=== PATIENT | female | born 1945 | race Caucasian/White ===

== ENCOUNTER 2018-06-08 19:31 | Emergency (ER) | payer MEDICARE ==
[2018-06-08 20:10] LABS: #Basophils 0.1 thou/uL (0.0-0.2); #Eosinphils 0.2 thou/uL (0.0-0.7); #Lymphocytes 2.1 thou/uL (1.20-3.40); #Monocytes 1.2 thou/uL (0.11-0.59); #Neutrophils 9.4 thou/uL (1.40-6.50); %Basophils 0.6 % (0.0-1.0); %Eosinophils 1.8 % (0.0-10.0); %Monocytes 9.1 % (0.0-10.0); %Neutrophils 72.5 % (42.0-75.0); Hemoglobin 13.9 g/dL (12.0-16.0); Mean Corpuscular HGB CONC 33.4 g/dL (32.0-36.0); Mean Corpuscular Hemoglobin 30.3 pg (27.0-31.0); Mean Corpuscular Volume 90.6 fL (78.0-98.0); Mean Platelet Volume 7.5 fL (7.4-10.4); Platelet Count 284 thou/uL (130-400); Red Blood Cell (RBC) Count 4.58 mill/uL (4.20-5.40); White Blood Cell (WBC) Count 12.9 thou/uL (4.8-10.8)
[2018-06-08 20:32] LABS: ALT (SGPT) 15 U/L (8-55); AST (SGOT) 18 U/L (5-34); Albumin 4.3 g/dL (3.4-4.8); Alkaline Phosphatase 72 U/L (40-150); Anion Gap 10 mmol/L (10-20); BUN (Urea Nitrogen) 21 mg/dL (9.8-20.1); Bilirubin, Total 0.4 mg/dL (0.2-1.2); Calc. Creatinine Clearance 0 mL/min (70-130); Calcium 9.9 mg/dL (7.8-10.44); Carbon Dioxide 28 mmol/L (23-31); Chloride 105 mmol/L (98-107); Estimated GFR-MDRD 47; Globulin 2.5 g/dL (2.4-3.5); Glucose 93 mg/dL (83-110); Lipase 59 U/L (8-78); Potassium 4.1 mmol/L (3.5-5.1); Protein, Total 6.8 g/dL (6.0-8.3); Sodium 139 mmol/L (136-145)
--- NOTE | 2018-06-08 20:48 | RAD ---
Radiograph right hip 2 views: HISTORY: 73-year-old female with traumatic right hip pain due to fall FINDINGS: Hip replacement arthroplasty hardware in place with no evidence of loosening, dislocation, or acute f racture. IMPRESSION: 1. Status post right hip replacement arthroplasty. 2. No fracture identified.
--- NOTE | 2018-06-08 21:14 | CT ---
CT brain noncontrast: HISTORY: 73-year-old female status post acute head trauma from fall FINDINGS: There is no evidence of acute intra-axial or extra-axial hemorrhage. There is no midline shift or any other mass effect. There is no extra-axial fluid collection. There is no evidence of obstructive hydrocephalus. Calvarium is intact. There is diffuse brain parenchymal volume loss. IMPRESSION: 1) No acute intracranial findings. 2) involutional changes.
--- NOTE | 2018-06-08 21:17 | CT ---
CT CERVICAL SPINE NONCONTRAST: DATE: 06/08/2018 HISTORY: 73-year-old female status post acute cervical trauma from fall FINDINGS: There are no jumped or perched facets. There is no evidence of acute fracture. The vertebral body hei ghts are maintained. There is no prevertebral soft tissue swelling. There are degenerative disc changes and facet osteoarthrosis. IMPRESSION: 1) Cervical spondylosis. 2) no evidence of acute fracture or acute traumatic subluxation.
--- NOTE | 2018-06-09 11:51 | RAD ---
XR Pelvis AP STANDARD HISTORY:Patient fell. COMPARISON: None. FINDINGS: The pelvic ring appears intact without evidence of fracture. There are arthritic changes of the lower lumbar spine and left hip. A right hip prosthesis is partially visualized on this exam. It appears to be in normal position. The distal end of the femoral component is not visualized. IMPRESSION: No evidence of pelvic fracture.
--- NOTE | 2018-06-12 00:15 | EKG ---
Test Reason : Blood Pressure : / mmHG Vent. Rate : 063 BPM Atrial Rate : 063 BPM P-R Int : 140 ms QRS Dur : 080 ms QT Int : 460 ms P-R-T Axes : 034 -41 041 degrees QTc Int : 470 ms Normal sinus rhythm Left axis deviation Moderate voltage criteria for LVH, may be normal variant Nonspecific ST and T wave abnormality Prolonged QT Abnormal ECG No STEMI Confirmed by RIC Hutchinson, LESLY ([id number]), non linear editor PETAR DOUGLAS ([id number] on 06/12/2018 12:15:14 AM Referred By: Confirmed By:LESLY LARIOS M.D.
== END 2018-06-08 22:07 | disposition home or self-care (01) ==
LOC: ERS 19:31
DX: S00.83XA Contusion of other part of head, initial encounter (principal); S60.221A Contusion of right hand, initial encounter; G30.9 Alzheimer's disease, unspecified; E78.00 Pure hypercholesterolemia, unspecified; F02.80 Dementia in other diseases classified elsewhere, unspecified severity, without behavioral disturbance, psychotic disturbance, mood disturbance, and anxiety; W19.XXXA Unspecified fall, initial encounter
CPT/HCPCS: 36415; 70450; 72125; 72170; 80053; 83690; 85025; 93005

== ENCOUNTER 2018-09-26 18:25 | Emergency (ER) | payer MEDICARE ==
[2018-09-26 19:32] LABS: #Basophils 0.1 thou/uL (0.0-0.2); #Eosinphils 0.2 thou/uL (0.0-0.7); #Lymphocytes 1.4 thou/uL (1.20-3.40); #Neutrophils 12.1 thou/uL (1.40-6.50); %Basophils 0.5 % (0.0-1.0); %Eosinophils 1.3 % (0.0-10.0); %Lymphocytes 9.4 % (21.0-51.0); %Neutrophils 81.7 % (42.0-75.0); Hemoglobin 12.6 g/dL (12.0-16.0); Mean Corpuscular HGB CONC 33.5 g/dL (32.0-36.0); Mean Corpuscular Hemoglobin 30.2 pg (27.0-31.0); Mean Platelet Volume 7.6 fL (7.4-10.4); Platelet Count 381 thou/uL (130-400); RBC Distribution Width 11.6 % (11.5-14.5); Red Blood Cell (RBC) Count 4.16 mill/uL (4.20-5.40); White Blood Cell (WBC) Count 14.8 thou/uL (4.8-10.8)
--- NOTE | 2018-09-26 19:40 | RAD ---
Chest AP view INDICATION: Weakness and dehydration COMPARISON: April 16, 2017 FINDINGS: Lungs:The lungs are clear Cardiac silhouette pulmonary vasculature:The cardiomediastinal silhouette appears within normal limit s. Pleural spaces:No pleural effusion or pneumothorax is demonstrated. Upper abdomen:No abnormality seen. Osseous structures: No acute osseous abnormality. There is scattered degenerative and osteoarthritic change present. There is mild thoracic scoliosis. Additional findings:None. IMPRESSION: No acute cardiopulmonary abnormality.
[2018-09-26 19:55] LABS: ALT (SGPT) 29 U/L (8-55); AST (SGOT) 26 U/L (5-34); Albumin 3.8 g/dL (3.4-4.8); Alkaline Phosphatase 81 U/L (40-150); Anion Gap 14 mmol/L (10-20); BUN (Urea Nitrogen) 16 mg/dL (9.8-20.1); Bilirubin, Total 0.5 mg/dL (0.2-1.2); Calc. Creatinine Clearance 0 mL/min (70-130); Calcium 9.6 mg/dL (7.8-10.44); Carbon Dioxide 24 mmol/L (23-31); Estimated GFR-MDRD 66; Glucose 97 mg/dL (83-110); Potassium 3.7 mmol/L (3.5-5.1); Protein, Total 6.8 g/dL (6.0-8.3)
[2018-09-26 19:57] LABS: Chloride 104 mmol/L (98-107); Sodium 138 mmol/L (136-145)
[2018-09-26 22:05] LABS: Bilirubin Negative (Negative); Blood, Urine 1+ (Negative); Clarity Clear (Clear); Glucose, Urine (Dipstick) Normal (Negative); Leukocyte 250 Leu/uL (Negative); Nitrite Negative (Negative); Protein, Urine (Dipstick) 30 mg/dL (Neg-Trace); Squamous Epithelial None Seen HPF (0-3)
[2018-09-26 22:27] LABS: Bacteria/HPF Rare-Few HPF (None Seen)
[2018-09-26] MEDS ORDERED: cefTRIAXone\\ROCEPHIN 1 GM VIAL ONE (23:07)
== END 2018-09-26 23:40 | disposition home or self-care (01) ==
LOC: ERS 18:25
DX: N39.0 Urinary tract infection, site not specified (principal); E78.00 Pure hypercholesterolemia, unspecified; G30.9 Alzheimer's disease, unspecified; F02.80 Dementia in other diseases classified elsewhere, unspecified severity, without behavioral disturbance, psychotic disturbance, mood disturbance, and anxiety; Z79.82 Long term (current) use of aspirin; Z79.899 Other long term (current) drug therapy
CPT/HCPCS: 36415; 51701; 71045; 80053; 81003; 81015; 84484; 85025; 87077; 87086; 87186; 93005; 96365; A4353; J0696

== ENCOUNTER 2018-12-19 19:18 | Emergency (ER) | payer MEDICARE ==
--- NOTE | 2018-12-19 21:00 | RAD ---
Radiograph right hip 2 views: DATE: 12/19/2018 HISTORY: 73-year-old female with acute traumatic right hip pain due to fall. COMPARISON: 06/08/2018 FINDINGS: There is metallic right hip prosthesis with long stem that reaches proximal-mid femoral diaphysis. No evidence of hardware loosening around the stem of the hardware. Low-attenuation of bone throughout the intertrochanteric region and greater trochanter, and just superior to acetabular roof, are unchan ged. No dislocation. No acute fracture identified. No interval change. IMPRESSION: 1. Status post right hip replacement arthroplasty. 2. No dislocation or acute fracture identified.
--- NOTE | 2018-12-19 22:28 | RAD ---
Left hip 2 views HISTORY: Left hip pain. FINDINGS: Moderate joint space narrowing, osteophytosis, and subchondral sclerosis. No acute fracture or dislocation. IMPRESSION: Osteoarthritic changes. No acute osseous abnormalities are demonstrated.
--- NOTE | 2018-12-19 22:29 | RAD ---
AP pelvis one view HISTORY: Fall. Pelvic injury. FINDINGS: Right hip prosthesis partially visualized without evidence of complication. Degenerative ch anges of the left hip and lower lumbar spine. Sacrum partially obscured. No displaced fractures are evident. Pelvic rings are intact. IMPRESSION: Right hip prosthesis. Degenerative changes. No acute osseous abnormalities are demonstrated.
--- NOTE | 2018-12-19 23:16 | RAD ---
Left lower leg 2 views HISTORY: Left leg injury. FINDINGS: Tibia and fibula are intact. Degenerative changes of the knee and ankle. No acute fracture or dislocation. IMPRESSION: No acute osseous abnormalities are demonstrated.
== END 2018-12-19 23:46 | disposition home or self-care (01) ==
LOC: ERS 19:18
DX: S80.12XA Contusion of left lower leg, initial encounter (principal); S30.0XXA Contusion of lower back and pelvis, initial encounter; E78.00 Pure hypercholesterolemia, unspecified; G30.9 Alzheimer's disease, unspecified; F02.80 Dementia in other diseases classified elsewhere, unspecified severity, without behavioral disturbance, psychotic disturbance, mood disturbance, and anxiety; Z79.82 Long term (current) use of aspirin; Z79.899 Other long term (current) drug therapy; W19.XXXA Unspecified fall, initial encounter
CPT/HCPCS: 72170

== ENCOUNTER 2019-02-18 21:15 | Emergency (ER) | payer MEDICARE ==
[2019-02-18] MEDS ORDERED: Acetaminophen 500 MG TAB ONE (21:57)
--- NOTE | 2019-02-18 21:59 | RAD ---
XR Hip Lt 2-3 View INDICATION: Fall with left hip pain COMPARISON: December 19, 2018 FINDINGS: Bones: No acute osseous abnormality. Bone mineralization appears within normal limits. Hip joint: There is stable mild left hip osteoarthrosis when compared to a prior dated December 19 019. SI joints and symphysis pubis: Mild degenerative change of left SI joint. Intrapelvic contents: Visualized bowel gas pattern is within normal limits. Surrounding soft tissues: Radiographically normal. IMPRESSION: 1. No acute osseous abnormality.
--- NOTE | 2019-02-18 22:00 | RAD ---
AP view of the pelvis INDICATION: Fall COMPARISON: December 19, 2018 FINDINGS: Bones: No acute fracture or subluxation demonstrated. Diffuse osteopenia. Hips: Right total hip prosthesis is unchanged in appearance. Mild left hip osteoarthrosis is stable. SI joints and symphysis pubis: Mild SI joint osteoarthrosis is stable. Intrapelvic contents: Within normal limits. IMPRESSION: No acute osseous abnormality.
--- NOTE | 2019-02-18 22:08 | CT ---
CT Cervical Spine WO Con Indication: Fall with possible neck injury; Alzheimer's dementia COMPARISON: Prior exam dated June 08, 2018 FINDINGS: Fracture: None. Spinal alignment: Slight anterior translation of C3 on C4 is stable. Slight retrolisthesis of C5 on C 6 is stable. Slight anterior translation of C7 on T1 is stable. Craniocervical junction: Within normal limits. Vertebral body heights: Maintained. Cervical spine degenerative change: Severe spondylosis cervical spine is stable. Ankylosis of C2-C3 f acet complexes and C4-C5 facet complexes is stable. Lung apices: Clear. IMPRESSION: No acute osseous abnormality.
--- NOTE | 2019-02-18 22:09 | CT ---
CT Brain WO Con: 02/18/2019 9:41 PM CLINICAL HISTORY: Fall. IMAGING TECHNIQUE: Multiple CT images were obtained of the brain without IV contrast. COMPARISON: June 08, 2018 FINDINGS: Mild motion artifact limits evaluation of the vertex. Brain: No acute infarct or hemorrhage is evident. No midline shift. Diffuse cerebral and cerebellar atrophy is stable. Ventricles: Normal. No hydrocephalus.. Skull: Intact.. Visualized Paranasal sinuses: Clear.. Mastoid air cells:Clear. Extracranial soft tissues:There is a left parietal scalp contusion. IMPRESSION: No acute intracranial abnormality.
== END 2019-02-18 22:33 | disposition home or self-care (01) ==
LOC: ERS 21:15
DX: S51.012A Laceration without foreign body of left elbow, initial encounter (principal); S76.012A Strain of muscle, fascia and tendon of left hip, initial encounter; S00.03XA Contusion of scalp, initial encounter; S70.12XA Contusion of left thigh, initial encounter; S80.01XA Contusion of right knee, initial encounter; S60.212A Contusion of left wrist, initial encounter; S60.211A Contusion of right wrist, initial encounter; W18.30XA Fall on same level, unspecified, initial encounter
CPT/HCPCS: 70450; 72125; 72170

== ENCOUNTER 2019-02-25 10:06 | Emergency (ER) | payer MEDICARE ==
[2019-02-25 10:37] LABS: #Basophils 0.1 thou/uL (0.0-0.2); #Eosinphils 0.2 thou/uL (0.0-0.7); #Lymphocytes 1.4 thou/uL (1.20-3.40); #Monocytes 0.5 thou/uL (0.11-0.59); #Neutrophils 7.1 thou/uL (1.40-6.50); %Basophils 0.6 % (0.0-1.0); %Eosinophils 1.9 % (0.0-10.0); %Lymphocytes 14.9 % (21.0-51.0); %Monocytes 5.7 % (0.0-10.0); %Neutrophils 76.9 % (42.0-75.0); Hemoglobin 12.9 g/dL (12.0-16.0); Mean Corpuscular HGB CONC 33.2 g/dL (32.0-36.0); Mean Corpuscular Hemoglobin 29.5 pg (27.0-31.0); Mean Corpuscular Volume 88.6 fL (78.0-98.0); Mean Platelet Volume 7.7 fL (7.4-10.4); Platelet Count 267 thou/uL (130-400); RBC Distribution Width 11.9 % (11.5-14.5); Red Blood Cell (RBC) Count 4.38 mill/uL (4.20-5.40); White Blood Cell (WBC) Count 9.3 thou/uL (4.8-10.8)
[2019-02-25 10:54] LABS: ALT (SGPT) 12 U/L (8-55); AST (SGOT) 18 U/L (5-34); Alkaline Phosphatase 66 U/L (40-110); Anion Gap 13 mmol/L (10-20); BUN (Urea Nitrogen) 14 mg/dL (9.8-20.1); Bilirubin, Total 0.7 mg/dL (0.2-1.2); Calc. Creatinine Clearance 0 mL/min (70-130); Calcium 9.1 mg/dL (7.8-10.44); Carbon Dioxide 24 mmol/L (23-31); Chloride 110 mmol/L (98-107); Estimated GFR-MDRD 65; Globulin 2.2 g/dL (2.4-3.5); Glucose 100 mg/dL (83-110); Potassium 4.1 mmol/L (3.5-5.1); Protein, Total 6.2 g/dL (6.0-8.3); Sodium 143 mmol/L (136-145)
--- NOTE | 2019-02-25 10:56 | RAD ---
Left hip 2 views: 02/25/2019 COMPARISON: 02/18/2019 HISTORY: Trauma, pain FINDINGS: Mild degenerative change of the bilateral sacroiliac joints and the pubic symphysis. Favian mccain visualized right total hip arthroplasty. Superior joint space narrowing of the left hip with osteophyte formation of the greater trochanter. No displaced fracture or evidence of dislocation seen . If symptoms persist or the patient is unable to bear weight, cross-sectional imaging advised. IMPRESSION: Stable left hip degenerative change. No displaced fracture seen.
--- NOTE | 2019-02-25 10:58 | RAD ---
Frontal radiograph pelvis: 02/25/2019 COMPARISON: 02/18/2019 HISTORY: Trauma FINDINGS: No fracture or dislocation. No radiopaque foreign body or subcutaneous gas. Stable hip arth roplasty on the right. Stable degenerative change of sacroiliac joints, left hip, and pubic symphysis. IMPRESSION: No acute findings.
--- NOTE | 2019-02-25 11:34 | CT ---
Head CT without contrast 02/25/2019: COMPARISON: 02/18/2019 HISTORY: Fall TECHNIQUE: Axial CT imaging at 5 mm intervals from vertex through skull base without contrast FINDINGS: The imaged paranasal sinuses and mastoid air cells are well aerated. There is no displaced calvarial fracture. No intracranial hemorrhage, midline shift, or mass effect. There is diffuse cerebral volume loss with associated prominence of the CSF containing spaces. IMPRESSION: Stable head CT as detailed above. No intracranial hemorrhage or displaced calvarial fract ure.
--- NOTE | 2019-02-25 11:37 | CT ---
EXAM: CT cervical spine PROVIDED CLINICAL HISTORY: Fall COMPARISON: None FINDINGS: No evidence for fracture or traumatic subluxation. No prevertebral soft tissue swelling apparent. Vi sualized lung apices appear clear. Advanced multilevel cervical degenerative change. IMPRESSION: No evidence for fracture or traumatic subluxation.
[2019-02-25 12:40] LABS: Bilirubin Negative (Negative); Blood, Urine Negative (Negative); Clarity Clear (Clear); Glucose, Urine (Dipstick) Normal (Negative); Leukocyte 250 Leu/uL (Negative); Nitrite Negative (Negative); Protein, Urine (Dipstick) 10 mg/dL (Neg-Trace); Urobilinogen Normal mg/dL (Less than 2)
[2019-02-25 12:41] LABS: Bacteria/HPF 2+ HPF (None Seen); Squamous Epithelial None Seen HPF (0-3); WBC/HPF 21-50 HPF (0-3)
== END 2019-02-25 13:56 | disposition home or self-care (01) ==
LOC: ERS 10:06
DX: S70.02XA Contusion of left hip, initial encounter (principal); N39.0 Urinary tract infection, site not specified; E78.00 Pure hypercholesterolemia, unspecified; G30.9 Alzheimer's disease, unspecified; F02.80 Dementia in other diseases classified elsewhere, unspecified severity, without behavioral disturbance, psychotic disturbance, mood disturbance, and anxiety; Z79.82 Long term (current) use of aspirin; Z79.899 Other long term (current) drug therapy; W18.30XA Fall on same level, unspecified, initial encounter
CPT/HCPCS: 36415; 51701; 70450; 72125; 72170; 80053; 81003; 81015; 84484; 85025; 87077; 87086; 87186; 93005; A4353

== ENCOUNTER 2019-03-20 21:26 | Inpatient (IN) | payer MEDICARE ==
[~2019-03-20 21:26] MED LIST: Iopamidol-370 76% 500 ML 1 ML ONE
--- NOTE | 2019-03-20 22:26 | RAD ---
Chest AP view INDICATION: Nausea vomiting COMPARISON: September 16, 2018 FINDINGS: Lungs:The lungs are clear Cardiac silhouette:The cardiomediastinal silhouette appears within normal limits. Pulmonary vasculature:Normal Pleural spaces:No pleural effusion or pneumothorax is demonstrated. Upper abdomen:No abnormality seen. Osseous structures: Stable diffuse osteopenia. Stable thoracolumbar scoliosis. Stable thoracic spondy losis. Additional findings:None. IMPRESSION: No acute cardiopulmonary abnormality.
[2019-03-20 22:32] LABS: #Basophils 0.1 thou/uL (0.0-0.2); #Lymphocytes 0.4 thou/uL (1.20-3.40); #Monocytes 0.8 thou/uL (0.11-0.59); #Neutrophils 15.1 thou/uL (1.40-6.50); %Basophils 0.3 % (0.0-1.0); %Eosinophils 0.2 % (0.0-10.0); %Lymphocytes 2.3 % (21.0-51.0); %Monocytes 5.1 % (0.0-10.0); %Neutrophils 92.1 % (42.0-75.0); Mean Corpuscular HGB CONC 31.3 g/dL (32.0-36.0); Mean Corpuscular Hemoglobin 29.2 pg (27.0-31.0); Mean Corpuscular Volume 93.2 fL (78.0-98.0); Mean Platelet Volume 8.4 fL (7.4-10.4); Platelet Count 305 thou/uL (130-400); RBC Distribution Width 11.8 % (11.5-14.5); Red Blood Cell (RBC) Count 4.81 mill/uL (4.20-5.40); White Blood Cell (WBC) Count 16.4 thou/uL (4.8-10.8)
--- NOTE | 2019-03-20 22:47 | CT ---
CT OF THE ABDOMEN AND PELVIS WITH IV CONTRAST INDICATION: History of dementia with vomiting and diarrhea COMPARISON: None FINDINGS: ABDOMEN: Lung bases: Mild bibasilar atelectasis Liver: No focal lesion. Gallbladder: Normal appearing. There is slight prominence of the common bile duct without a visible stone. There is a diverticulum seen in the second portion the duodenum near the ampulla. Pancreas: Normal. Adrenal glands: Normal. Spleen: Normal. Kidneys and ureters: There is bilateral nephrolithiasis. The largest stone is seen within the superio r pole of the left kidney measuring 6.6 mm. There is a 3.5 mm stone within the mid left kidney. There is a 1 to 2 mm stone within the mid right kidney. No hydronephrosis is demonstrated. Vasculature: There are severe vascular calcifications seen involving the visualized vasculature. Lymph nodes:No lymphadenopathy. Free fluid in abdomen:No free fluid is evident. PELVIS: Small and large bowel: There is scattered colonic diverticulosis without evidence of active diverticu litis. Appendix:Normal Bladder: Normal. Rectal and perirectal soft tissues:Normal. Reproductive structures: Normal. Free fluid in pelvis: No free fluid is evident. Lymphadenopathy pelvis: No lymphadenopathy is evident. Osseous structures: There is diffuse osteopenia. There is a right total hip replacement. There is sc attered degenerative and osteoarthritic changes. Soft tissues:There are bilateral breast implants. Soft tissues are otherwise within normal limits. IMPRESSION: 1. No definite acute abnormality. 2. Bilateral nephrolithiasis 3. Slight prominence of the common bile duct without a visible intraluminal stone. There is moderatel y prominent diverticulum seen near the second stage of the duodenum and the ampulla of Vater. This may be causing some mild obstructive physiology to the common bile duct. 4. Colonic diverticulosis without evidence of active diverticulitis
[2019-03-20 22:54] LABS: ALT (SGPT) 21 U/L (8-55); AST (SGOT) 25 U/L (5-34); Albumin 4.2 g/dL (3.4-4.8); Alkaline Phosphatase 73 U/L (40-110); Anion Gap 20 mmol/L (10-20); BUN (Urea Nitrogen) 20 mg/dL (9.8-20.1); Bilirubin, Total 0.6 mg/dL (0.2-1.2); Calc. Creatinine Clearance 0 mL/min (70-130); Calcium 9.2 mg/dL (7.8-10.44); Carbon Dioxide 19 mmol/L (23-31); Chloride 109 mmol/L (98-107); Estimated GFR-MDRD 52; Globulin 2.4 g/dL (2.4-3.5); Glucose 205 mg/dL (83-110); Lipase 36 U/L (8-78); Potassium 4.6 mmol/L (3.5-5.1); Protein, Total 6.6 g/dL (6.0-8.3); Sodium 143 mmol/L (136-145)
[2019-03-20 23:16] LABS: Bilirubin Negative (Negative); Blood, Urine Negative (Negative); Clarity Clear (Clear); Glucose, Urine (Dipstick) Normal (Negative); Leukocyte 500 Leu/uL (Negative); Mucous/LPF Rare LPF (<2+); Nitrite Negative (Negative); Protein, Urine (Dipstick) 20 mg/dL (Neg-Trace); Renal Epithelial 0-3 HPF (None Seen); Squamous Epithelial 0-3 HPF (0-3); Urobilinogen Normal mg/dL (Less than 2); WBC/HPF 21-50 HPF (0-3)
[2019-03-20 23:21] LABS: Bacteria/HPF Rare-Few HPF (None Seen); RBC/HPF 0-3 HPF (0-3)
[2019-03-21] MEDS ORDERED: cefTRIAXone\\ROCEPHIN 2 GM VIAL ONE (00:02)
[2019-03-21 05:46] LABS: Lactic Acid 3.4 mmol/L (0.5-2.2)
[2019-03-21] MEDS ORDERED: Ondansetron PF 4 MG/2 ML Vial IVP PRN ×2 (05:51→18:03)
[2019-03-21] MEDS ORDERED: Ondansetron ODT 4 MG TAB SL PRN (05:51)
[2019-03-21] MEDS: Sodium Chloride 0.9% 1,000 ML IV SCH ×4 (05:56→21:00)
[2019-03-21 05:58] VITALS: BMI 20.6
--- NOTE | 2019-03-21 06:23 | PDOC.HHP ---
Hospitalist HPI - History of Present Illness encephalopathy, diarrhea History of Present Illness: This is a 73 year old female with Alzheimers who presented from the ER due to nausea, vomiting and diarrhea from her [facility]. She also was more confused and family thought that she may have a UTI since she normally presents like this when she has a UTI. The patient is unable to give a history. There are several sick contacts in the [facility]. ED Course: Vitals on admission were unremarkable. Labs showed a WBC of 16.4. Lactate was 2.9. The patient had a UA which showed 500 leukocyte esterase. Chest Xray showed no pneumonia. CT abdomen showed bilateral nephrolithiasis. THe patient received 2L normal saline, 2 gram ceftriaxone and was admitted for further workup. Repeat lactate was still trending up. Hospitalist ROS - Review of Systems ROS unobtainable: due to mental status Respiratory: denies: cough Cardiovascular: denies: chest pain Gastrointestinal: denies: abdominal pain, diarrhea - Medication Medications: Active Medications Generic Name Dose Route Start Last Admin Trade Name Freq PRN Reason Stop Dose Admin Sodium Chloride 1,000 mls @ 100 mls/hr 03/21/19 05:51 03/21/19 05:56 Normal Saline 0.9% IV 03/21/19 12:54 1,000 mls .Q10H NARESH Administration Hospitalist History - Past Medical History Cardiac: reports: HTN - Past Surgical History Other Surgical History: Hip replacement - Family History Other Family History: Unknown - Social History Smoking Status: Unknown if ever smoked Other Social History: Lives at [facility] - Exam General Appearance: NAD, awake alert General - other findings: answers some questions Eye: PERRL, anicteric sclera ENT: normocephalic atraumatic, no oropharyngeal lesions, dry oral mucosa Neck: supple, symmetric, no JVD, no thyromegaly, no carotid bruit Heart: RRR, no murmur, no gallops, no rubs Respiratory: CTAB, no wheezes, no rales, no ronchi Gastrointestinal: soft, non-tender, non-distended, normal bowel sounds Extremities: no cyanosis, no clubbing, no edema Skin: normal turgor, no lesions, no rashes Neurological: cranial nerve grossly intact, normal sensation to touch, no focal deficits, no new deficit Musculoskeletal: normal tone, normal strength, no muscle wasting Psychiatric: oriented to person Psychiatric - other findings: says she is in her house Hospitalist Results - Labs Result Diagrams: 03/20/19 22:12 03/20/19 22:12 Lab results: WBC 16.4 thou/uL (4.8-10.8) H 03/20/19 22:12 Hgb 14.0 g/dL (12.0-16.0) 03/20/19 22:12 Hct 44.8 % (36.0-47.0) 03/20/19 22:12 MCV 93.2 fL (78.0-98.0) 03/20/19 22:12 Plt Count 305 thou/uL (130-400) 03/20/19 22:12 Neutrophils % 92.1 % (42.0-75.0) H 03/20/19 22:12 Sodium 143 mmol/L (136-145) 03/20/19 22:12 Potassium 4.6 mmol/L (3.5-5.1) 03/20/19 22:12 Chloride 109 mmol/L (98-107) H 03/20/19 22:12 Carbon Dioxide 19 mmol/L (23-31) L 03/20/19 22:12 BUN 20 mg/dL (9.8-20.1) 03/20/19 22:12 Creatinine 1.05 mg/dL (0.6-1.1) 03/20/19 22:12 Glucose 205 mg/dL (83-110) H 03/20/19 22:12 Lactic Acid 3.4 mmol/L (0.5-2.2) H 03/21/19 00:57 Calcium 9.2 mg/dL (7.8-10.44) 03/20/19 22:12 Total Bilirubin 0.6 mg/dL (0.2-1.2) 03/20/19 22:12 AST 25 U/L (5-34) 03/20/19 22:12 ALT 21 U/L (8-55) 03/20/19 22:12 Alkaline Phosphatase 73 U/L (40-110) 03/20/19 22:12 Troponin I Less than 0.010 ng/mL (< 0.028) 03/20/19 22:13 Serum Total Protein 6.6 g/dL (6.0-8.3) 03/20/19 22:12 Albumin 4.2 g/dL (3.4-4.8) 03/20/19 22:12 Lipase 36 U/L (8-78) 03/20/19 22:12 Urine Ketones Negative mg/dL (Negative) 03/20/19 22:59 Urine Blood Negative (Negative) 03/20/19:59 Urine Nitrite Negative (Negative) 03/20/19:59 Ur Leukocyte Esterase 500 Caridad/uL (Negative) A 03/20/19:59 Urine RBC 0-3 HPF (0-3) 03/20/19:59 Urine WBC 21-50 HPF (0-3) A 03/20/19 22:59 Ur Squamous Epith Cells 0-3 HPF (0-3) 03/20/19:59 Urine Bacteria Rare-Few HPF (None Seen) 03/20/19:59 - EKG Interpretation EKG: motion artifact Hospitalist H&P A/P - Plan Plan: Chest X ray: no acute disease CT abdomen: bilateral kidney stones. Colonic diverticulosis. Slight prominence of common bile duct. Severe vascular calcification s This is 73 year old female who presented to the ER with nausea/vomiting/ diarrhea and altered mental status. #Dehydration and lactic acidosis possibly secondary to gastroenteritis #Leukocytosis - stool cultures and C diff sent - will order additional 500 cc bolus, s/p 2L bolus. Repeat lactate in am - CT abdomen showed no acute pathology. UA showed 500 leukocyte esterase, on IV ceftriaxone - will send urine culture #Hypertension - hold home meds #Dementia - resume home meds DVT prophylaxis: will order heparin Code status: unknown, assume full code
[2019-03-21] MEDS ORDERED: Sodium Chloride 0.9% 500 ML IV SCH (06:30)
[2019-03-21 06:44] LABS: #Lymphocytes 0.6 thou/uL (1.20-3.40); #Monocytes 0.5 thou/uL (0.11-0.59); #Neutrophils 8.9 thou/uL (1.40-6.50); %Basophils 0.2 % (0.0-1.0); %Eosinophils 0.2 % (0.0-10.0); %Lymphocytes 5.6 % (21.0-51.0); %Monocytes 5.2 % (0.0-10.0); %Neutrophils 88.9 % (42.0-75.0); Hemoglobin 11.8 g/dL (12.0-16.0); Mean Corpuscular HGB CONC 33.7 g/dL (32.0-36.0); Mean Corpuscular Hemoglobin 31.3 pg (27.0-31.0); Mean Corpuscular Volume 92.9 fL (78.0-98.0); Mean Platelet Volume 7.8 fL (7.4-10.4); Platelet Count 269 thou/uL (130-400); RBC Distribution Width 11.7 % (11.5-14.5); Red Blood Cell (RBC) Count 3.76 mill/uL (4.20-5.40)
[2019-03-21] MEDS ORDERED: cefTRIAXone Sodium 1 MG in Syringe 0 ML IVPB SCH (06:45)
[2019-03-21 06:55] LABS: Anion Gap 14 mmol/L (10-20); BUN (Urea Nitrogen) 16 mg/dL (9.8-20.1); Calc. Creatinine Clearance 64 mL/min (70-130); Calcium 7.9 mg/dL (7.8-10.44); Carbon Dioxide 20 mmol/L (23-31); Chloride 115 mmol/L (98-107); Estimated GFR-MDRD 71; Glucose 95 mg/dL (83-110); Potassium 4.5 mmol/L (3.5-5.1); Sodium 144 mmol/L (136-145)
[2019-03-21] MEDS: Calcium Carbonate + Vit D 1 TAB PO SCH ×2 (09:05→21:01)
[2019-03-21] MEDS: Aspirin 81 mg Enteric Coated Tablet PO SCH (09:05)
[2019-03-21] MEDS: Heparin 5,000 UNITS/ML VIAL SC SCH ×3 (09:06→21:08)
[2019-03-21] MEDS: Loratadine 10 MG TAB PO SCH (09:06)
[2019-03-21] MEDS: Donepezil HCl 5 MG TAB PO SCH ×2 (09:06→21:01)
[2019-03-21] MEDS: Citalopram 20 MG TAB PO SCH (09:06)
[2019-03-21 10:22] LABS: Lactic Acid 1.3 mmol/L (0.5-2.2)
[2019-03-21] MEDS ORDERED: Prevnar 13-Val Conj/PF 0.5 ML SYRINGE IM ONE (21:00)
[2019-03-21] MEDS ORDERED: FLU VACC TS2019-20(65YR UP)/PF 180 MCG/0.5 ML SYRINGE IM ONE (21:00)
--- NOTE | 2019-03-21 21:42 | PDOC.EVN ---
Event Note - Event Note Event Note: ON initial visit, she was doing better. Had not had any further diarrhea, vomiting. WBC back to normal range. Labs ok. Looks viral. Subsequently, she had recurrence of vomiting. Anti-emetics re-ordered. Will continue IVF, treat symptomatically and reassess in am.
[2019-03-22] MEDS: cefTRIAXone\\ROCEPHIN 1 GM in Sodium Chloride 0.9% 100 ML IVPB SCH ×2 (00:22→23:44)
[2019-03-22 05:23] LABS: #Eosinphils 0.1 thou/uL (0.0-0.7); #Lymphocytes 0.5 thou/uL (1.20-3.40); #Monocytes 0.4 thou/uL (0.11-0.59); #Neutrophils 3.5 thou/uL (1.40-6.50); %Basophils 0.3 % (0.0-1.0); %Eosinophils 1.8 % (0.0-10.0); %Lymphocytes 10.6 % (21.0-51.0); %Monocytes 9.6 % (0.0-10.0); %Neutrophils 77.8 % (42.0-75.0); Hemoglobin 10.9 g/dL (12.0-16.0); Mean Corpuscular HGB CONC 35.1 g/dL (32.0-36.0); Mean Corpuscular Hemoglobin 31.6 pg (27.0-31.0); Mean Corpuscular Volume 90.1 fL (78.0-98.0); Mean Platelet Volume 7.6 fL (7.4-10.4); Platelet Count 216 thou/uL (130-400); RBC Distribution Width 11.5 % (11.5-14.5); Red Blood Cell (RBC) Count 3.44 mill/uL (4.20-5.40); White Blood Cell (WBC) Count 4.5 thou/uL (4.8-10.8)
[2019-03-22 05:46] LABS: ALT (SGPT) 17 U/L (8-55); AST (SGOT) 21 U/L (5-34); Alkaline Phosphatase 51 U/L (40-110); Anion Gap 8 mmol/L (10-20); BUN (Urea Nitrogen) 8 mg/dL (9.8-20.1); Bilirubin, Total 0.2 mg/dL (0.2-1.2); Calc. Creatinine Clearance 70 mL/min (70-130); Calcium 7.6 mg/dL (7.8-10.44); Carbon Dioxide 23 mmol/L (23-31); Chloride 111 mmol/L (98-107); Estimated GFR-MDRD 79; Globulin 2.1 g/dL (2.4-3.5); Glucose 87 mg/dL (83-110); Potassium 3.3 mmol/L (3.5-5.1); Protein, Total 5.1 g/dL (6.0-8.3); Sodium 139 mmol/L (136-145)
[2019-03-22] MEDS: Heparin 5,000 UNITS/ML VIAL SC SCH ×3 (07:53→20:41)
[2019-03-22] MEDS: Loratadine 10 MG TAB PO SCH (07:53)
[2019-03-22] MEDS: Donepezil HCl 5 MG TAB PO SCH ×2 (07:53→20:40)
[2019-03-22] MEDS: Aspirin 81 mg Enteric Coated Tablet PO SCH (07:54)
[2019-03-22] MEDS: Calcium Carbonate + Vit D 1 TAB PO SCH ×2 (07:55→20:40)
[2019-03-22] MEDS: Citalopram 20 MG TAB PO SCH (07:55)
--- NOTE | 2019-03-22 11:53 | PDOC.HOSPP ---
- Subjective Encounter Date: 03/22/19 Encounter Time: 09:35 Subjective: Patient seen and examined. No new complaints. No overnight events - Objective Vital Signs & Weight: Vital Signs (12 hours) Temp Pulse Resp BP Pulse Ox 03/22/19 10:56 98.3 F 64 16 126/62 98 03/22/19 07:37 98.7 F 68 16 127/72 97 03/22/19 03:51 98.2 F 74 18 131/70 93 L Weight Weight 141 lb 3 oz I&O: 03/21/19 03/22/19 03/23/19 06:59 06:59 06:59 Intake Total 546 2880 Output Total 75 Balance 546 2805 Result Diagrams: 03/22/19 04:52 03/22/19 04:52 Radiology Reviewed by me: Yes Hospitalist ROS - Review of Systems ROS unobtainable: due to mental status - Medication Medications: Active Medications Generic Name Dose Route Start Last Admin Trade Name Freq PRN Reason Stop Dose Admin Aspirin 81 mg 03/21/19 09:00 03/22/19 07:54 Ecotrin PO 81 mg DAILY NARESH Administration Calcium/Vitamin D 1 tab 03/21/19 09:00 03/22/19 07:55 Caltrate 600 + Vit D PO 1 tab BID NARESH Administration Citalopram Hydrobromide 40 mg 03/21/19 09:00 03/22/19 07:55 Celexa PO 40 mg DAILY NARESH Administration Donepezil HCl 5 mg 03/21/19 09:00 03/22/19 07:53 Aricept PO 5 mg BID NARESH Administration Heparin Sodium (Porcine) 5,000 units 03/21/19 09:00 03/22/19 07:53 Heparin SC 5,000 units TID NARESH Administration Ceftriaxone Sodium 1 gm/ 100 mls @ 200 mls/hr 03/21/19 23:59 03/22/19 00:22 Sodium Chloride IVPB 100 mls Q24HR NARESH Administration Sodium Chloride 1,000 mls @ 75 mls/hr 03/21/19 18:15 03/21/19 21:00 Normal Saline 0.9% IV 1,000 mls .[id number] NARESH Administration Loratadine 10 mg 03/21/19 09:00 03/22/19 07:53 Claritin PO 10 mg DAILY NARESH Administration Memantine 10 mg 03/21/19 09:00 03/22/19 07:54 Namenda PO 10 mg BID NARESH Administration Sodium Chloride 10 ml 03/21/19 09:00 03/22/19 08:00 Flush - Normal Saline IVF Not Given Q12HR NARESH - Exam General Appearance: NAD, awake alert Eye: PERRL, anicteric sclera ENT: normocephalic atraumatic, no oropharyngeal lesions Neck: supple, symmetric, no JVD, no thyromegaly Heart: RRR, no murmur, no gallops, no rubs Respiratory: CTAB, no wheezes, no rales, no ronchi Gastrointestinal: soft, non-tender, non-distended, normal bowel sounds Extremities: no cyanosis, no clubbing Skin: normal turgor, no lesions Neurological: no focal deficits Musculoskeletal: normal tone, normal strength Psychiatric: normal affect Hosp A/P (1) Gastroenteritis and colitis, viral Code(s): A08.4 - VIRAL INTESTINAL INFECTION, UNSPECIFIED Status: Acute (2) UTI (urinary tract infection) Status: Acute (3) Bilateral nephrolithiasis Code(s): N20.0 - CALCULUS OF KIDNEY Status: Chronic (4) Atelectasis of both lungs Code(s): J98.11 - ATELECTASIS Status: Acute (5) Encephalopathy acute Code(s): G93.40 - ENCEPHALOPATHY, UNSPECIFIED Status: Resolved (6) Alzheimer's dementia Code(s): G30.9 - ALZHEIMER'S DISEASE, UNSPECIFIED; F02.80 - DEMENTIA IN OTH DISEASES CLASSD ELSWHR W/O BEHAVRL DISTURB Status: Chronic (7) Dehydration Code(s): E86.0 - DEHYDRATION Status: Acute (8) Hypokalemia Code(s): E87.6 - HYPOKALEMIA Status: Acute (9) Lactic acidosis Code(s): E87.2 - ACIDOSIS Status: Resolved (10) Anemia, normocytic normochromic Code(s): D64.9 - ANEMIA, UNSPECIFIED Status: Chronic - Plan old records reviewed/req, plan discussed w/ family, continue antibiotics, PT/OT , healthcare social worker 03/22/19 continue IVF continue rocephin PT/OT DNR repeat lab tomorrow no aggressive intervention
--- NOTE | 2019-03-22 11:57 | PDOC.FMACP ---
Advance Care Planning - Problem (1) Gastroenteritis and colitis, viral Status: Acute Code(s): A08.4 - VIRAL INTESTINAL INFECTION, UNSPECIFIED (2) UTI (urinary tract infection) Status: Acute (3) Bilateral nephrolithiasis Status: Chronic Code(s): N20.0 - CALCULUS OF KIDNEY (4) Atelectasis of both lungs Status: Acute Code(s): J98.11 - ATELECTASIS (5) Encephalopathy acute Status: Resolved Code(s): G93.40 - ENCEPHALOPATHY, UNSPECIFIED (6) Alzheimer's dementia Status: Chronic Code(s): G30.9 - ALZHEIMER'S DISEASE, UNSPECIFIED; F02.80 - DEMENTIA IN OTH DISEASES CLASSD ELSWHR W/O BEHAVRL DISTURB (7) Dehydration Status: Acute Code(s): E86.0 - DEHYDRATION (8) Hypokalemia Status: Acute Code(s): E87.6 - HYPOKALEMIA (9) Lactic acidosis Status: Resolved Code(s): E87.2 - ACIDOSIS (10) Anemia, normocytic normochromic Status: Chronic Code(s): D64.9 - ANEMIA, UNSPECIFIED - Note Participants: surrogate decision-maker Summary: Advanced Care Planning was discussed. The diagnosis, prognosis and goals of care were discussed. Appropriate forms and documentation to accomplish the goals of care were discussed. All questions were answered. The Palliative Care Team will be engaged to assist with completion of any outstanding forms that are needed. discussed with pt's STEFANIE her daughter Evert Ayers discussed about DNR meaning and answered question discussed goal of care regarding testing and treatment for incidental finding Decision: DNR No aggressive intervention unless absolutely needed
[2019-03-22] MEDS ORDERED: Potassium Chloride 10 MEQ in Premix Bag 1 BAG IVPB SCH (12:30)
[2019-03-22] MEDS: Sodium Chloride 0.9% 1,000 ML IV SCH (12:55)
[2019-03-22] MEDS ORDERED: Acetaminophen 500 MG TAB PO PRN (16:39)
[2019-03-23] MEDS: Sodium Chloride 0.9% 1,000 ML IV SCH ×2 (04:54→10:30)
[2019-03-23 05:40] LABS: #Eosinphils 0.2 thou/uL (0.0-0.7); #Lymphocytes 0.7 thou/uL (1.20-3.40); #Monocytes 0.6 thou/uL (0.11-0.59); #Neutrophils 3.1 thou/uL (1.40-6.50); %Basophils 0.4 % (0.0-1.0); %Eosinophils 4.7 % (0.0-10.0); %Lymphocytes 15.3 % (21.0-51.0); %Monocytes 11.9 % (0.0-10.0); %Neutrophils 67.7 % (42.0-75.0); Hemoglobin 11.6 g/dL (12.0-16.0); Mean Corpuscular HGB CONC 33.7 g/dL (32.0-36.0); Mean Corpuscular Hemoglobin 30.5 pg (27.0-31.0); Mean Corpuscular Volume 90.5 fL (78.0-98.0); Mean Platelet Volume 7.3 fL (7.4-10.4); Platelet Count 217 thou/uL (130-400); RBC Distribution Width 11.3 % (11.5-14.5); White Blood Cell (WBC) Count 4.6 thou/uL (4.8-10.8)
[2019-03-23 06:05] LABS: ALT (SGPT) 19 U/L (8-55); AST (SGOT) 24 U/L (5-34); Alkaline Phosphatase 53 U/L (40-110); Anion Gap 9 mmol/L (10-20); BUN (Urea Nitrogen) 9 mg/dL (9.8-20.1); Bilirubin, Total 0.2 mg/dL (0.2-1.2); Calc. Creatinine Clearance 75 mL/min (70-130); Calcium 7.6 mg/dL (7.8-10.44); Carbon Dioxide 26 mmol/L (23-31); Chloride 109 mmol/L (98-107); Estimated GFR-MDRD 82; Glucose 73 mg/dL (83-110); Potassium 3.5 mmol/L (3.5-5.1); Sodium 140 mmol/L (136-145)
[2019-03-23] MEDS: Loratadine 10 MG TAB PO SCH (08:01)
[2019-03-23] MEDS: Donepezil HCl 5 MG TAB PO SCH (08:01)
[2019-03-23] MEDS: Citalopram 20 MG TAB PO SCH (08:01)
[2019-03-23] MEDS: Calcium Carbonate + Vit D 1 TAB PO SCH (08:02)
[2019-03-23] MEDS: Aspirin 81 mg Enteric Coated Tablet PO SCH (08:02)
[2019-03-23] MEDS: Heparin 5,000 UNITS/ML VIAL SC SCH ×2 (08:02→15:30)
--- NOTE | 2019-03-23 13:19 | PDOC.HOSPP ---
- Subjective Encounter Date: 03/23/19 Encounter Time: 09:15 Subjective: Patient seen and examined. No new complaints. No overnight events - Objective Vital Signs & Weight: Vital Signs (12 hours) Temp Pulse Resp BP Pulse Ox 03/23/19 10:49 97.3 F L 60 14 136/82 96 03/23/19 07:50 95 03/23/19 07:33 97.7 F 58 L 16 135/75 95 03/23/19 03:14 98.2 F 81 16 129/81 92 L Weight Weight 139 lb 6.4 oz I&O: 03/22/19 03/23/19 03/24/19 06:59 06:59 06:59 Intake Total 2880 1380 240 Output Total 75 Balance 2805 1380 240 Result Diagrams: 03/23/19 05:00 03/23/19 05:00 Hospitalist ROS - Review of Systems ROS unobtainable: due to mental status - Medication Medications: Active Medications Generic Name Dose Route Start Last Admin Trade Name Freq PRN Reason Stop Dose Admin Acetaminophen 500 mg 03/22/19 16:39 03/22/19 16:59 Tylenol PO 500 mg Q6H PRN Administration Headache/Fever or Pain Aspirin 81 mg 03/21/19 09:00 03/23/19 08:02 Ecotrin PO 81 mg DAILY NARESH Administration Calcium/Vitamin D 1 tab 03/21/19 09:00 03/23/19 08:02 Caltrate 600 + Vit D PO 1 tab BID NARESH Administration Citalopram Hydrobromide 40 mg 03/21/19 09:00 03/23/19 08:01 Celexa PO 40 mg DAILY NARESH Administration Donepezil HCl 5 mg 03/21/19 09:00 03/23/19 08:01 Aricept PO 5 mg BID NARESH Administration Heparin Sodium (Porcine) 5,000 units 03/21/19 09:00 03/23/19 08:02 Heparin SC 5,000 units TID NARESH Administration Ceftriaxone Sodium 1 gm/ 100 mls @ 200 mls/hr 03/21/19 23:59 03/22/19 23:44 Sodium Chloride IVPB 100 mls Q24HR NARESH Administration Sodium Chloride 1,000 mls @ 75 mls/hr 03/21/19 18:15 03/23/19 04:54 Normal Saline 0.9% IV 1,000 mls .[id number] NARESH Administration Loratadine 10 mg 03/21/19 09:00 03/23/19 08:01 Claritin PO 10 mg DAILY NARESH Administration Memantine 10 mg 03/21/19 09:00 03/23/19 08:01 Namenda PO 10 mg BID NARESH Administration Ondansetron HCl 4 mg 03/21/19 18:03 03/23/19 11:21 Zofran IVP 4 mg Q6H PRN Administration Nausea/Vomiting Sodium Chloride 10 ml 03/21/19 09:00 03/23/19 08:03 Flush - Normal Saline IVF Not Given Q12HR NARESH - Exam General Appearance: NAD, awake alert Eye: PERRL, anicteric sclera ENT: normocephalic atraumatic, no oropharyngeal lesions Neck: supple, symmetric, no JVD, no thyromegaly Heart: RRR, no murmur, no gallops, no rubs Respiratory: CTAB, no wheezes, no rales, no ronchi Gastrointestinal: soft, non-tender, non-distended, normal bowel sounds Extremities: no cyanosis, no clubbing Skin: normal turgor, no lesions Neurological: no focal deficits Musculoskeletal: normal tone, normal strength Psychiatric: normal affect, normal behavior Hosp A/P (1) Gastroenteritis and colitis, viral Code(s): A08.4 - VIRAL INTESTINAL INFECTION, UNSPECIFIED Status: Acute (2) UTI (urinary tract infection) Status: Acute (3) Bilateral nephrolithiasis Code(s): N20.0 - CALCULUS OF KIDNEY Status: Chronic (4) Atelectasis of both lungs Code(s): J98.11 - ATELECTASIS Status: Acute (5) Encephalopathy acute Code(s): G93.40 - ENCEPHALOPATHY, UNSPECIFIED Status: Resolved (6) Alzheimer's dementia Code(s): G30.9 - ALZHEIMER'S DISEASE, UNSPECIFIED; F02.80 - DEMENTIA IN OTH DISEASES CLASSD ELSWHR W/O BEHAVRL DISTURB Status: Chronic (7) Dehydration Code(s): E86.0 - DEHYDRATION Status: Acute (8) Hypokalemia Code(s): E87.6 - HYPOKALEMIA Status: Acute (9) Lactic acidosis Code(s): E87.2 - ACIDOSIS Status: Resolved (10) Anemia, normocytic normochromic Code(s): D64.9 - ANEMIA, UNSPECIFIED Status: Chronic - Plan old records reviewed/req, plan discussed w/ family, continue antibiotics, PT/OT , social psychologist, speech therapy 03/22/19 continue IVF continue rocephin PT/OT DNR repeat lab tomorrow no aggressive intervention 03/23/19 see discharge luna
--- NOTE | 2019-03-23 14:26 | PQF ---
DATE: 03-23-19 ATTN: DR. FLOR ERICKSON Please exercise your independent, professional judgment in responding to the clarification form. Clinical indicators are provided on the bottom of this form for your review Please check appropriate box(s): [ x ] Encephalopathy: Type: [ ] Acute [ ] Subacute [ ] Chronic Etiology: [x ] Metabolic [ ] Toxic [ ] in the setting of underlying dementia [ ] Other (please specify) [ ] Transient Alteration of Awareness [ ] Other diagnosis [ ] Unable to determine In addition, please specify: Present on Admission (POA): [ x ] Yes [ ] No [ ] Unable to determine For continuity of documentation, please document condition throughout progress notes and discharge summary. Thank You. CLINICAL INDICATORS - SIGNS / SYMPTOMS / LABS / RESULTS AND LOCATION IN EMR: ER NOTES 03-21-19: FAMILY REPORTS SHE BECOMES MORE CONFUSED WHEN SHE HAS A UTI OR S DEHYDRATED, HX OF ALZHEIMER ADVANCED ER DX 03-21-19: UTI, DEHYDRATION, LACTIC ACIDOSIS H&P 03-21-19: N, V, D AND ALTERED MENTAL STATUS PN DR. ERICKSON 03-22-19: ACUTE ENCEPHALOPATHY RISK FACTORS / RESULTS AND LOCATION IN EMR: ER DX 03-21-19: UTI, DEHYDRATION, LACTIC ACIDOSIS ER NOTES 03-21-19: FAMILY REPORTS SHE BECOMES MORE CONFUSED WHEN SHE HAS A UTI OR DEHYDRATED, HX OF ALZHEIMER'S ADVANCED TREATMENTS / RESULTS AND LOCATION IN EMR: PN DR. ERICKSON 03-22-19: CONTINUE IVF, CONTINUE ROCEPHIN (This form is maintained as a part of the permanent medical record) 2014 [employer]. All Rights Reserved LIVIA [email or web address] Office: [phone] [facility]
--- NOTE | 2019-03-23 14:29 | DIS ---
DATE OF ADMISSION: 03/21/2019 DATE OF DISCHARGE: 03/23/2019 PRIMARY CARE PHYSICIAN: Dr. Amena Mckeon. DISCHARGE DISPOSITION: Assisted living facility with home health PT and OT and Speech Therapy. PRIMARY DISCHARGE DIAGNOSES: Atelectasis of both lung, dehydration, viral gastroenteritis, hypokalemia, urinary tract infection, acute encephalopathy, lactic acidosis, bilateral nephrolithiasis. SECONDARY DISCHARGE DIAGNOSES: Normocytic normochromic anemia, advanced Alzheimer dementia. PRIMARY PROCEDURE/OPERATION: None. RADIOLOGICAL INVESTIGATION: Chest x-ray showed bibasilar atelectasis. CT abdomen and pelvis showed bibasilar atelectasis, bilateral nephrolithiasis. SIGNIFICANT LABORATORY DATA: WBC 4.6, hemoglobin 11.6, platelet 217. Sodium 140, potassium 3.5, creatinine 0.70, calcium 7.6. LFT normal. Urinalysis suggestive of UTI. Urine culture grew Enterococcus. Stool for infection workup negative. DISCHARGE MEDICATIONS: Levaquin 500 mg p.o. daily for 7 days. Continue following medications; 1. Aspirin 81 mg daily. 2. Calcium with vitamin D 600 mg b.i.d. 3. Celexa 40 mg daily. 4. Atrovent nasal spray as directed. 5. Lisinopril 10 mg daily. 6. Claritin 10 mg daily p.r.n. 7. Namenda with donepezil one tablet daily. 8. Multivitamin one tablet daily. 9. MiraLAX 17 g p.o. daily. CONTRAINDICATION: None. CODE STATUS: DNR. INPATIENT SENIOR MEDIA BUYER: None. ALLERGIES: PENICILLIN. DISCHARGE PLAN: Posthospital, the patient will follow up with primary care physician. HOSPITAL COURSE: A 73-year-old female who has pretty much advanced dementia, who lives at assisted living facility where the patient was having nausea, vomiting, and diarrhea. She was appeared dehydrated. The patient was weak. She was sent to emergency room for evaluation. In the emergency room, the patient was found with dehydration with high urine specific gravity. She had leukocytosis. Her urinalysis was consistent with UTI and her lactic acid was elevated. The patient was also having encephalopathy from dehydration and sepsis that was improved with hydration as well as empiric antibiotic therapy with Rocephin. Her stool for infection workup came back negative. We presumed gastroenteritis to be due to viral etiology. Her urine culture grew Enterococcus and based on culture result, we changed to levofloxacin. Her chest x-ray was unremarkable, but CT abdomen and pelvis showed atelectasis as well as bilateral nephrolithiasis. All test result discussed with the family member. The patient was needing PT, OT, and Speech Therapy at assisted living facility and that is why with help of casework manager, we arranged. Overall, the patient is medically stable for discharge today. Job ID: [id number]
[2019-03-23 16:00] VITALS: BP 143/59; TEMP 97.5
== END 2019-03-23 17:00 | disposition home health service (06) | DRG 871 ==
LOC: ERS 21:26 → SURG A 03-21 00:59
PROVIDERS: ADMIT Internal Medicine; ATTEND Internal Medicine
DX: A41.9 Sepsis, unspecified organism (principal); G93.41 Metabolic encephalopathy; N03.9 Chronic nephritic syndrome with unspecified morphologic changes; J98.11 Atelectasis; E87.2 Acidosis; Z66 Do not resuscitate; A08.4 Viral intestinal infection, unspecified; D64.9 Anemia, unspecified; E87.6 Hypokalemia; E86.0 Dehydration; F02.80 Dementia in other diseases classified elsewhere, unspecified severity, without behavioral disturbance, psychotic disturbance, mood disturbance, and anxiety; G30.9 Alzheimer's disease, unspecified; N20.0 Calculus of kidney; Z79.82 Long term (current) use of aspirin; Z88.0 Allergy status to penicillin; Z79.899 Other long term (current) drug therapy; Z79.51 Long term (current) use of inhaled steroids
CPT/HCPCS: 36415; 51701; 71045; 74177; 80048; 80053; 81003; 81015; 83605; 83690; 84484; 85025; 87045; 87046; 87077; 87086; 87186; 87324; 87427; 87449; 90471; 90662; 90670; 93005; 96361; 96365; G0008; G0009; J0696; J1644; J2405; J3480; J3490; Q9967